=== PATIENT | female | born 1980 | race American Indian/Alaskan Native ===

== ENCOUNTER 2017-01-07 12:28 | Emergency (ER) | payer BC ==
[2017-01-07] MEDS ORDERED: ZOFRAN ONE (12:41)
[2017-01-07] MEDS ORDERED: ZOFRAN IV ONE (13:10)
[2017-01-07] MEDS ORDERED: PEPCID IV ONE (16:05)
[2017-01-07] MEDS ORDERED: CARAFATE PO ONE (16:54)
[2017-01-07] MEDS ORDERED: BENTYL IM ONE (16:54)
[2017-01-07] MEDS ORDERED: REGLAN IV ONE (16:54)
[2017-01-07] MEDS ORDERED: NACL 0.9% 1000 ML 1,000 ML IV ONE (16:55)
--- NOTE | 2017-01-07 16:56 | Emergency Department Report ---
ED General Adult HPI - General Chief complaint: Seizure Stated complaint: SEIZURE Time Seen by Provider: 01/07/17 16:47 Source: patient, family, EMS, RN notes reviewed Mode of arrival: Stretcher Limitations: No Limitations - History of Present Illness Initial comments: This is a 36-year-old female, the patient is previously unknown to this provider , her neurology specialist is Dr. Muniz Patient reports a past medical history of seizure disorder, reports taking Topamax 200 mg, supposed be on it twice daily, she does admit to medication noncompliance. Patient is brought to the hospital by EMS for seizure. 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 The patient's partner/boyfriend is present on the scene, he indicated to me that the patient did not fall or hit her head, that she had generalized shaking. The patient initially complained of lower abdominal and diffuse pain, nausea and vomiting. The pain is achy, and does not radiate anywhere, and does not have exacerbating or relieving factors. Patient reports that her abdominal pain is secondary to vomiting, she denies hematemesis and bright red blood per rectum, she denies irritative and obstructive urinary symptoms and vaginal discharge. The patient did indicate poor compliance with her antiepileptic drug therapy, and she also admits to cannabis consumption. -: Sudden Location: abdomen Consistency: constant Improves with: none Worsens with: none Associated Symptoms: loss of appetite, malaise, nausea/vomiting, weakness - Related Data Home Medications Medication Instructions Recorded Confirmed Last Taken Topiramate [Topamax] 200 mg PO BID 01/07/17 01/07/17 01/05/17 Previous Rx's Medication Instructions Recorded Last Taken Type Dicyclomine [Bentyl] 10 mg PO QID PRN #20 capsule 01/07/17 Unknown Rx Ondansetron [Zofran Odt] 4 mg PO QID PRN #20 tab.rapdis 01/07/17 Unknown Rx Topiramate [Topamax] 200 mg PO BID #60 tablet 01/07/17 Unknown Rx Allergies Allergy/AdvReac Type Severity Reaction Status Date / Time No Known Allergies Allergy Unverified 01/07/17 13:08 ED Review of Systems ROS: Stated complaint: SEIZURE Other details as noted in HPI Constitutional: malaise. denies: fever Eyes: denies: eye discharge ENT: denies: epistaxis Respiratory: denies: cough Cardiovascular: denies: chest pain Gastrointestinal: abdominal pain, nausea, vomiting Genitourinary: denies: dysuria Musculoskeletal: denies: back pain Skin: denies: lesions Neurological: weakness Psychiatric: anxiety ED Past Medical Hx - Past Medical History Previous Medical History?: Yes Hx Headaches / Migraines: Yes Hx Seizures: Yes (since 2011) Additional medical history: sleep apnea - Surgical History Additional Surgical History: tubes placed in bilateral ears - Social History Smoking Status: Current Every Day Smoker - Medications Home Medications: Home Medications Medication Instructions Recorded Confirmed Last Taken Type Dicyclomine [Bentyl] 10 mg PO QID PRN #20 capsule 01/07/17 Unknown Rx Ondansetron [Zofran Odt] 4 mg PO QID PRN #20 tab.rapdis 01/07/17 Unknown Rx Topiramate [Topamax] 200 mg PO BID 01/07/17 01/07/17 01/05/17 History Topiramate [Topamax] 200 mg PO BID #60 tablet 01/07/17 Unknown Rx ED Physical Exam - General Limitations: No Limitations General appearance: alert, in no apparent distress - Head Head exam: Present: atraumatic, normocephalic - Eye Eye exam: Present: normal appearance, EOMI. Absent: nystagmus - ENT ENT exam: Present: normal exam, normal orophraynx, mucous membranes moist, normal external ear exam - Neck Neck exam: Present: normal inspection, full ROM. Absent: tenderness, meningismus - Respiratory Respiratory exam: Present: normal lung sounds bilaterally. Absent: respiratory distress, wheezes, rales, rhonchi, stridor, chest wall tenderness, accessory muscle use, decreased breath sounds, prolonged expiratory - Cardiovascular Cardiovascular Exam: Present: regular rate, normal rhythm, normal heart sounds. Absent: bradycardia, tachycardia, irregular rhythm, systolic murmur, diastolic murmur, rubs, gallop - GI/Abdominal GI/Abdominal exam: Present: soft, normal bowel sounds. Absent: distended, tenderness, guarding, pulsatile mass - Extremities Exam Extremities exam: Present: normal inspection, full ROM, normal capillary refill. Absent: tenderness, pedal edema, joint swelling, calf tenderness - Back Exam Back exam: Present: normal inspection, full ROM. Absent: tenderness, CVA tenderness (R), CVA tenderness (L), muscle spasm, paraspinal tenderness, vertebral tenderness - Neurological Exam Neurological exam: Present: alert, oriented X3, normal gait, other (Extraocular movements intact. Tongue midline. No facial droop. Facial sensation intact to light touch in the V1, V2, V3 distribution bilaterally. 5 and 5 strength in 4 extremities.. Sensation is intact to light touch in 4 extremities.). Absent : motor sensory deficit - Psychiatric Psychiatric exam: Present: normal affect, normal mood - Skin Skin exam: Present: warm, dry, intact, normal color. Absent: rash ED Course Vital Signs 01/07/17 01/07/17 01/07/17 12:40 13:00 16:11 Temperature 98 F Pulse Rate 110 H 69 45 L Respiratory 22 25 H 17 Rate Blood Pressure 129/73 Blood Pressure 127/77 123/50 [Right] O2 Sat by Pulse 98 98 98 Oximetry 01/07/17 01/07/17 18:18 19:45 Temperature 98.7 F Pulse Rate 63 53 L Respiratory 15 17 Rate Blood Pressure Blood Pressure 98/43 107/57 [Right] O2 Sat by Pulse 94 99 Oximetry - Reevaluation(s) Reevaluation #1: 01/07/17 18:43 CT scan did demonstrated nonspecific air in the vagina, patient reports recent vigorous sexual intercourse with her partner. ED Medical Decision Making - Lab Data Result diagrams: 01/07/17 17:03 01/07/17 17:03 Vital Signs 01/07/17 01/07/17 01/07/17 12:40 13:00 16:11 Temperature 98 F Pulse Rate 110 H 69 45 L Respiratory 22 25 H 17 Rate Blood Pressure 129/73 Blood Pressure 127/77 123/50 [Right] O2 Sat by Pulse 98 98 98 Oximetry 01/07/17 18:18 Temperature Pulse Rate 63 Respiratory 15 Rate Blood Pressure Blood Pressure 98/43 [Right] O2 Sat by Pulse 94 Oximetry Lab Results 01/07/17 01/07/17 01/07/17 Range/Units 17:03 17:03 17:03 WBC 19.4 H (4.5-11.0) K/mm3 RBC 4.40 (3.65-5.03) M/mm3 Hgb 14.0 (10.1-14.3) gm/dl Hct 43.1 H (30.3-42.9) % MCV 98 H (79-97) fl MCH 32 (28-32) pg MCHC 33 (30-34) % RDW 12.7 L (13.2-15.2) % Plt Count 188 (140-440) K/mm3 Sodium 139 (137-145) mmol/L Potassium 4.2 (3.6-5.0) mmol/L Chloride 103.4 (98-107) mmol/L Carbon Dioxide 21 L (22-30) mmol/L Anion Gap 19 mmol/L BUN 11 (7-17) mg/dL Creatinine 0.8 (0.7-1.2) mg/dL Estimated GFR > 60 ml/min BUN/Creatinine Ratio 13.75 % Glucose 91 (65-100) mg/dL Calcium 9.4 (8.4-10.2) mg/dL Total Bilirubin 0.50 (0.1-1.2) mg/dL AST 21 (5-40) units/L ALT 17 (7-56) units/L Alkaline Phosphatase 60 (35-129) units/L Total Protein 8.0 (6.3-8.2) g/dL Albumin 4.2 (3.9-5) g/dL Albumin/Globulin Ratio 1.1 % Lipase 13 (13-60) units/L HCG, Quant < 2 (0-4) mIU/mL Urine Color (Yellow) Urine Turbidity (Clear) Urine pH (5.0-7.0) Ur Specific [place] (1.003-1.030) Urine Protein (Negative) mg/dL Urine Glucose (UA) (Negative) mg/dL Urine Ketones (Negative) mg/dL Urine Blood (Negative) Urine Nitrite (Negative) Urine Bilirubin (Negative) Urine Urobilinogen (<2.0) mg/dL Ur Leukocyte Esterase (Negative) Urine WBC (Auto) (0.0-6.0) /HPF Urine RBC (Auto) (0.0-6.0) /HPF U Epithel Cells (Auto) (0-13.0) /HPF Hyaline Casts /LPF Urine Mucus /HPF Urine Opiates Screen Urine Methadone Screen Ur Barbiturates Screen Ur Phencyclidine Scrn Ur Amphetamines Screen U Benzodiazepines Scrn Urine Cocaine Screen U Marijuana (THC) Screen Drugs of Abuse Note 01/07/17 01/07/17 Range/Units 17:16 17:16 WBC (4.5-11.0) K/mm3 RBC (3.65-5.03) M/mm3 Hgb (10.1-14.3) gm/dl Hct (30.3-42.9) % MCV (79-97) fl MCH (28-32) pg MCHC (30-34) % RDW (13.2-15.2) % Plt Count (140-440) K/mm3 Sodium (137-145) mmol/L Potassium (3.6-5.0) mmol/L Chloride (98-107) mmol/L Carbon Dioxide (22-30) mmol/L Anion Gap mmol/L BUN (7-17) mg/dL Creatinine (0.7-1.2) mg/dL Estimated GFR ml/min BUN/Creatinine Ratio % Glucose (65-100) mg/dL Calcium (8.4-10.2) mg/dL Total Bilirubin (0.1-1.2) mg/dL AST (5-40) units/L ALT (7-56) units/L Alkaline Phosphatase (35-129) units/L Total Protein (6.3-8.2) g/dL Albumin (3.9-5) g/dL Albumin/Globulin Ratio % Lipase (13-60) units/L HCG, Quant (0-4) mIU/mL Urine Color Yellow (Yellow) Urine Turbidity Clear (Clear) Urine pH 7.0 (5.0-7.0) Ur Specific [place] 1.015 (1.003-1.030) Urine Protein <15 mg/dl (Negative) mg/dL Urine Glucose (UA) Neg (Negative) mg/dL Urine Ketones Neg (Negative) mg/dL Urine Blood Sm (Negative) Urine Nitrite Neg (Negative) Urine Bilirubin Neg (Negative) Urine Urobilinogen < 2.0 (<2.0) mg/dL Ur Leukocyte Esterase Neg (Negative) Urine WBC (Auto) 2.0 (0.0-6.0) /HPF Urine RBC (Auto) 2.0 (0.0-6.0) /HPF U Epithel Cells (Auto) 6.0 (0-13.0) /HPF Hyaline Casts 1 /LPF Urine Mucus Few /HPF Urine Opiates Screen Presumptive negative Urine Methadone Screen Presumptive negative Ur Barbiturates Screen Presumptive negative Ur Phencyclidine Scrn Presumptive negative Ur Amphetamines Screen Presumptive negative U Benzodiazepines Scrn Presumptive negative Urine Cocaine Screen Presumptive negative U Marijuana (THC) Screen Presumptive positive Drugs of Abuse Note Disclamer - Radiology Data Radiology results: pending, report reviewed - Medical Decision Making Differential diagnosis: Breakthrough seizure secondary to cannabis consumption and medication noncompliance, appendicitis, colitis, diverticulitis, urinary tract infection Assessment and plan: 36-year-old female with reported history of nontraumatic breakthrough seizure, who is noncompliant with medications, resulting abdominal pain. She is afebrile, with reassuring vital signs, has a GCS of 15, with an NIH score of 0 and is clinically sober at this time. She was initially quite uncomfortable, but she was medicated symptomatically, and her nausea and vomiting have resolved. Her leukocytosis is appreciated, this is most likely secondary to stress emargination, or recent seizure. She is afebrile, her abdomen is soft and benign, with no rebound, guarding or peritoneal signs, she is saturating well with no focal pulmonary findings, and urinalysis is not corroborated urinary tract infection, therefore, her leukocytosis most likely does not represent an acute infectious process. The patient declined a pelvic examination, risks and alternatives were discussed with the patient and she verbalizes understanding, given lack of tenderness on multiple abdominal examinations, I think ovarian cyst/ovarian torsion very unlikely, the risks of not performing the pelvic examination were discussed with the patient, and she verbalizes understanding. CT scan of abdomen and pelvis demonstrated no acute disease, this is expected, the patient is instructed to discontinue cannabis consumption, and to not drive a car for the next 6 months. She should follow-up with her outpatient neurology specialist, she'll be discharged at this time, return precautions are reviewed. Critical care attestation.: If time is entered above; I have spent that time in minutes in the direct care of this critically ill patient, excluding procedure time. ED Disposition Clinical Impression: Seizure, Lower abdominal pain Disposition: DC-01 TO HOME OR SELFCARE Is pt being admited?: No Does the pt Need Aspirin: No Condition: Stable Instructions: Recurrent Seizures Adult (ED) Additional Instructions: Do not drive her car or operate motor vehicles for the next 6 months. Discontinued consumption of cannabis/marijuana. This may make the patient more prone to having seizures/convulsions. Complications of seizures include stroke , disability, paralysis, , loss of quality of life. Follow-up with the neurology specialist within the next 2 weeks. Take the pain medication, nausea medication as directed. Return to the ER right away with new pain, worsened pain, migration of pain, fevers, chills, lethargy, irritability, projectile vomiting, change in mental status, inability to tolerate liquid feeds. Prescriptions: Dicyclomine [Bentyl] 10 mg PO QID PRN #20 capsule PRN Reason: Pain Ondansetron [Zofran Odt] 4 mg PO QID PRN #20 tab.rapdis PRN Reason: Nausea Topiramate [Topamax] 200 mg PO BID #60 tablet Referrals: PRIMARY CARE, [Primary Care Provider] - 3-5 Days JESUS SOW MD [Staff Physician] - 3-5 Days MARCO A BECERRA MD [Staff Physician] - 3-5 Days KRYSTYNA CERRATO MD [Staff Physician] - 3-5 Days
[2017-01-07 17:24] LABS: Hematocrit 43.1 % (30.3-42.9); Mean Corpuscular HGB Conc 33 % (30-34); Mean Corpuscular Hemoglobin 32 pg (28-32); Mean Corpuscular Volume 98 fl (79-97); Platelet Count 188 K/mm3 (140-440); Red Cell Distribution Width 12.7 % (13.2-15.2); White Blood Count 19.4 K/mm3 (4.5-11.0)
[2017-01-07 17:28] LABS: Urine Drugs of Abuse Note Disclamer
[2017-01-07 17:41] LABS: Bilirubin,Urine NEG (Negative); Blood,Urine SM (Negative); Ketones,Urine NEG (Negative); Leukocyte Esterase,Urine NEG (Negative); Mucus,Urine FEW /HPF; Nitrite,Urine NEG (Negative); Protein,Urine <15 mg/dL mg/dL (Negative); Urobilinogen,Urine < 2.0 mg/dL (<2.0)
[2017-01-07 17:43] LABS: Alanine Aminotransferase 17 units/L (7-56); Albumin 4.2 g/dL (3.9-5); Albumin/Globulin Ratio 1.1 %; Alkaline Phosphatase 60 units/L (35-129); Anion Gap 19 mmol/L; BUN/Creatinine Ratio 13.75; Blood Urea Nitrogen 11 mg/dL (7-17); Calcium 9.4 mg/dL (8.4-10.2); Carbon Dioxide 21 mmol/L (22-30); Chloride 103.4 mmol/L (98-107); Glucose 91 mg/dL (65-100); Lipase 13 units/L (13-60); Potassium 4.2 mmol/L (3.6-5.0); Sodium 139 mmol/L (137-145)
[2017-01-07] MEDS ORDERED: NACL ONE (17:44)
--- NOTE | 2017-01-07 18:39 | Cat Scan Report ---
FINAL REPORT EXAM: CT ABDOMEN PELVIS W CON HISTORY: lower abdominal pain, nausea and vomiting TECHNIQUE: CT examination of the ABDOMEN after IV contrast CT examination of the PELVIS after IV contrast PRIORS: None. FINDINGS: Slight lumbar curvature with lower right apex. Normal-appearing liver, gallbladder, adrenals, pancreas, and spleen. Intact normal caliber abdominal aorta and IVC. A nonspecific, smoothly marginated, low density right renal lesion may be a cyst. It is too small to characterize, measuring 6 mm posteriorly and laterally. Otherwise normal-appearing kidneys and visible ureteral segments. Very small fat containing umbilical hernia. Normal-appearing stomach and duodenum. No small bowel distention in the abdomen and pelvis. Nonspecific slight to moderate pelvic free fluid. Normal-appearing urinary bladder, rectum, adnexae, and uterus. Nonspecific air in the vagina may be related instrumentation. Normal-appearing sigmoid colon. No evidence of free air or colonic distention. Normal-appearing cecum, terminal ileum, and appendix. IMPRESSION: Nonspecific slight to moderate cul-de-sac free fluid may be reactive, hemorrhagic, or inflammatory. Nonspecific air in vagina may be iatrogenic.
[2017-01-07] MEDS ORDERED: TOPAMAX PO ONE (19:00)
[2017-01-07 19:46] VITALS: BP 107/57
== END 2017-01-07 19:48 | disposition home or self-care (01) ==
LOC: ED 12:28
DX: G40.909 Epilepsy, unspecified, not intractable, without status epilepticus (principal); R10.30 Lower abdominal pain, unspecified; G43.909 Migraine, unspecified, not intractable, without status migrainosus
CPT/HCPCS: 36415; 74177; 80053; 80307; 81001; 83690; 84702; 85027; 96361; 96372; 96374; 96375; 99285; J0500; J2405; J2765; J7030; Q9967